=== PATIENT | male | born 1980 | race Caucasian/White ===

== ENCOUNTER → 2018-08-06 | Outpatient (CLI) | payer OTHER ==
[~2018-08-06] MED LIST: ATOR20TA65 PO; BUPR-128 PO; FLU60VIA41 IM; LISI-362 PO; NYST15CR32 TP; VAL80 PO; VAR05PT PO; VARE1TAB3 PO
[2018-08-06 07:36] LABS: LDL CHOLESTEROL 74 mg/dl
[2018-08-06 07:52] LABS: PLATELET COUNT, AUTOMATED 278 K/uL (150-450)
== END ==
LOC: LAB 06:56
PROVIDERS: ATTEND Internal Medicine
DX: G47.31 Primary central sleep apnea (principal); R94.5 Abnormal results of liver function studies; R73.9 Hyperglycemia, unspecified; E78.5 Hyperlipidemia, unspecified; I10 Essential (primary) hypertension
CPT/HCPCS: 36415; 82040; 82247; 82310; 82374; 82435; 82465; 82565; 82947; 83036; 83718; 84075; 84132; 84155; 84295; 84450; 84460; 84478; 84520; 85025

== ENCOUNTER → 2018-08-21 | Outpatient (CLI) | payer OTHER | LOC: LAB 09:55 | PROVIDERS: ATTEND Nurse Practitioner | DX: D22.72 Melanocytic nevi of left lower limb, including hip (principal) | CPT/HCPCS: 88305 ==

== ENCOUNTER → 2019-01-13 | Outpatient (CLI) | payer OTHER ==
[~2019-01-13] MED LIST changes: +VALS160T22 PO
[2019-01-13 08:13] LABS: PLATELET COUNT, AUTOMATED 262 K/uL (150-450)
[2019-01-13 08:24] LABS: LDL CHOLESTEROL 53 mg/dl
== END ==
LOC: LAB 07:54
PROVIDERS: ATTEND Internal Medicine
DX: R94.5 Abnormal results of liver function studies (principal); G47.31 Primary central sleep apnea; E78.5 Hyperlipidemia, unspecified; I10 Essential (primary) hypertension
CPT/HCPCS: 36415; 82040; 82247; 82310; 82374; 82435; 82465; 82565; 82728; 82947; 83036; 83540; 83550; 83718; 84075; 84132; 84155; 84295; 84443; 84450; 84460; 84478; 84520; 85025

== ENCOUNTER → 2019-01-28 | Outpatient (CLI) | payer OTHER | LOC: RESP 20:04 | PROVIDERS: ATTEND Internal Medicine | DX: G47.33 Obstructive sleep apnea (adult) (pediatric) (principal); G47.37 Central sleep apnea in conditions classified elsewhere; G47.61 Periodic limb movement disorder ==

== ENCOUNTER → 2019-01-29 | Outpatient (CLI) | payer OTHER ==
--- NOTE | 2019-01-29 09:40 | RADIOLOGY IMAGING REPORT ---
FACILITY: [facility] - [place] PATIENT NAME: Meek Best : 1980 MR: [id number] V: [id number] EXAM DATE: ORDERING PHYSICIAN: NILESH MATA TECHNOLOGIST: Location: [facility] Patient: Meek Best : 1980 Visit/Account:[id number] Date of Sevice: 01/29/2019 LIVER HISTORY: Increasing LFTs COMPARISON: None. FINDINGS: Gallbladder: Unremarkable; no stones or sludge. Liver: There is increased echogenicity throughout liver which can be seen with fatty infiltration oth er infiltrative process. Liver is enlarged measuring 19.3 cm in length. Along the superior aspect o f the right lobe the liver there is a 1.8 x 2.9 x 2.1 cm heterogeneous space-occupying process. Ther e appears to be some increased vascularity. Common duct: Normal, 3.2 mm diameter. Pancreas: Partially obscured by bowel, visualized aspects unremarkable. Right kidney: Right kidney fissures 12.3 cm in length. There is a lobular contour to the right kidne y particularly along the lower pole which may represent lobulation. Upper abdominal aorta and IVC: Obscured by bowel gas Ascites: None visualized. IMPRESSION: Hepatomegaly with increased echogenicity throughout liver which can be seen with fatty infiltration o ther infiltrative process Along superior aspect right lobe there is a 1.8 x 2.9 x 2.1 cm heterogeneous space-occupying process. Follow-up CT or MR the liver with and without contrast with liver mass protocol recommended Lobular contour to the right kidney which may simply represent lobulation. This could however be further evaluated with the CT or MR the liver Report Dictated By: Micaela Holley MD at 01/29/2019 9:33 AM Report E-Signed By: Micaela Holley MD at 01/29/2019 9:36 AM WSN:[email or web address]
== END ==
LOC: US 01:14
PROVIDERS: ATTEND Internal Medicine
DX: R94.5 Abnormal results of liver function studies (principal)
CPT/HCPCS: 76705

== ENCOUNTER → 2019-02-11 | Outpatient (CLI) | payer OTHER ==
[~2019-02-11] MED LIST changes: +GADOBENATE 529MG/1ML 15ML VIAL IVP ONE; +NS(*) 0.9% 50 ML BAG 50 ML ONE
--- NOTE | 2019-02-11 12:17 | RADIOLOGY IMAGING REPORT ---
FACILITY: [facility] PATIENT NAME: Meek Best : 1980 MR: [id number] V: [id number] EXAM DATE: ORDERING PHYSICIAN: NILESH MATA TECHNOLOGIST: Location: [facility] [place] Patient: Meek Best : 1980 Visit/Account:[id number] Date of Sevice: 02/11/2019 MR ABDOMEN W & W/O CON HISTORY: Abnormal ultrasound, possible liver and renal lesion TECHNIQUE: Multiplanar multisequence magnetic resonance imaging of the abdomen with and without intr avenous contrast. CONTRAST: 15 cc of MultiHance COMPARISON: Ultrasound 01/29/2018 FINDINGS: Liver: Measures 19.8 cm in craniocaudal length with diffuse fatty infiltration. No focal liver lesio ns are seen. The abnormality seen on the ultrasound may represent volume averaging with fat in the f alciform ligament. The portal veins and hepatic veins are patent. Gallbladder and bile ducts: Negative. The common bile duct measures 2 mm. Spleen: Normal in signal intensity measures 14.6 cm in length Adrenal glands: Negative. Pancreas: Negative. Kidneys: There is normal lobulation of the right kidney. Vessels: Normal Bowel/peritoneum/mesentery: Negative Lymph nodes: Negative Bones/soft tissues: Negative Visualized lung bases: Negative Visualized pelvis: Negative Other findings: None significant IMPRESSION: 1. Fatty infiltration of the liver. No concerning liver lesions are seen. The abnormality seen on ultrasound likely represents volume averaging with fat in the falciform ligament. 2. Both kidneys are normal. There is normal lobulation of both kidneys. Report Dictated By: Joey Ramos MD at 02/11/2019 12:01 PM Report E-Signed By: Joey Ramos MD at 02/11/2019 12:12 PM WSN:[email or web address]
== END ==
LOC: MRI 00:52
PROVIDERS: ATTEND Internal Medicine
DX: K76.89 Other specified diseases of liver (principal)
CPT/HCPCS: 74183; A9577; J7050

== ENCOUNTER → 2019-03-23 | Outpatient (CLI) | payer OTHER ==
[~2019-03-23] MED LIST changes: -GADOBENATE 529MG/1ML 15ML VIAL IVP ONE; -NS(*) 0.9% 50 ML BAG 50 ML ONE; +PIOG15TA67 PO; +VALS1TAB4 PO; +VITA400T7 PO
[2019-03-23 10:28] LABS: PLATELET COUNT, AUTOMATED 240 K/uL (150-450)
[2019-03-23 11:23] LABS: LDL CHOLESTEROL 35 mg/dl
== END ==
LOC: LAB 09:33
PROVIDERS: ATTEND Internal Medicine
DX: R78.79 Finding of abnormal level of heavy metals in blood (principal); I10 Essential (primary) hypertension; R94.5 Abnormal results of liver function studies; R73.9 Hyperglycemia, unspecified; E78.5 Hyperlipidemia, unspecified; G47.30 Sleep apnea, unspecified
CPT/HCPCS: 36415; 80074; 81256; 82040; 82247; 82310; 82374; 82435; 82465; 82565; 82728; 82947; 83036; 83540; 83550; 83718; 84075; 84132; 84155; 84295; 84450; 84460; 84478; 84520; 85025; 86038